=== PATIENT | male | born 1980 | race Hispanic/Latino ===

== ENCOUNTER 2018-01-17 23:13 | Emergency (ER) | payer OTHER, SELFPAY ==
[2018-01-17 23:48] LABS: #Basophils 0.1 thou/uL (0.0-0.2); #Eosinphils 0.2 thou/uL (0.0-0.7); #Lymphocytes 2.8 thou/uL (1.20-3.40); #Monocytes 0.7 thou/uL (0.11-0.59); #Neutrophils 3.9 thou/uL (1.40-6.50); %Basophils 1.3 % (0.0-1.0); %Eosinophils 2.8 % (0.0-10.0); %Lymphocytes 36.7 % (21.0-51.0); %Monocytes 8.5 % (0.0-10.0); %Neutrophils 50.7 % (42.0-75.0); Mean Corpuscular HGB CONC 35.3 g/dL (32.0-36.0); Mean Corpuscular Hemoglobin 29.7 pg (27.0-31.0); Mean Corpuscular Volume 84.3 fl (80.0-94.0); Platelet Count 225 thou/uL (130-400); RBC Distribution Width 12.4 % (11.5-14.5); White Blood Cell (WBC) Count 7.7 thou/uL (4.8-10.8)
[2018-01-17 23:53] LABS: INR-International Normal Ratio 0.9; PTT 25.4 SEC (22.9-36.1); Prothrombin Time 11.9 SEC (12.0-14.7)
[2018-01-18 00:01] LABS: ALT (SGPT) 17 U/L (8-55); AST (SGOT) 12 U/L (5-34); Albumin 3.9 g/dL (3.5-5.0); Alkaline Phosphatase 88 U/L (40-150); Anion Gap 20 mmol/L (10-20); BUN (Urea Nitrogen) 17 mg/dL (8.9-20.6); Bilirubin, Total 0.4 mg/dL (0.2-1.2); CK (CPK) 157 U/L (30-200); Calc. Creatinine Clearance 0 mL/min (70-130); Calcium 9.6 mg/dL (7.8-10.44); Carbon Dioxide 23 mmol/L (22-29); Chloride 96 mmol/L (98-107); Estimated GFR-MDRD Greater than 90; Glucose 370 mg/dL (70-105); Lipase 193 U/L (8-78); Potassium 4.1 mmol/L (3.5-5.1); Protein, Total 6.9 g/dL (6.0-8.3); Sodium 135 mmol/L (136-145)
--- NOTE | 2018-01-18 07:37 | CT ---
ABDOMEN AND PELVIC CT WITH CONTRAST: COMPARISON: 11/30/15. CLINICAL HISTORY: Abdominal pain, hematemesis, and rectal bleeding. FINDINGS: There is no acute abnormality of the solid abdominal organs. The bowel is incompletely evaluated wit hout enteric contrast. There is no free air or portal venous gas. No significant ascites. There is a small hypodensity centrally within the liver, too small to further characterize. No consolidation at the lung bases. No acute osseous abnormalities. There is vascular calcification. IMPRESSION: No definite acute abnormality. There is incomplete assessment of the bowel without enteric contrast. Correlate clinically. No obvious peritoneal inflammation is seen. POS: C
== END 2018-01-18 00:32 | disposition home or self-care (01) ==
LOC: SCSER 23:13
DX: K92.0 Hematemesis (principal); K62.5 Hemorrhage of anus and rectum; E11.9 Type 2 diabetes mellitus without complications; I10 Essential (primary) hypertension; F41.9 Anxiety disorder, unspecified; F17.210 Nicotine dependence, cigarettes, uncomplicated; Z79.84 Long term (current) use of oral hypoglycemic drugs; Z79.899 Other long term (current) drug therapy
CPT/HCPCS: 74177; 80053; 82550; 83690; 85025; 85610; 85730

== ENCOUNTER 2020-11-12 13:47 | Emergency (ER) | payer OTHER, SELFPAY ==
[2020-11-12] MEDS ORDERED: Dexamethasone 10 MG/ML VIAL ONE (14:18)
[2020-11-12 14:41] LABS: Bacteria/HPF None Seen HPF (None Seen); Bilirubin Negative (Negative); Blood, Urine 1+ (Negative); Clarity Clear (Clear); Glucose, Urine (Dipstick) Greater than 1000 mg/dL (Negative); Ketone, Urine Negative (Negative); Leukocyte 25 Leu/uL (Negative); Nitrite Negative (Negative); Protein, Urine (Dipstick) 30 mg/dL (Neg-Trace); RBC/HPF 0-3 HPF (0-3); Specific Gravity, Urine 1.021 (1.002-1.036); Squamous Epithelial 0-3 HPF (0-3); Urobilinogen Normal mg/dL (Less than 2); pH, Urine 5.5 (5.0-9.0)
== END 2020-11-12 14:59 | disposition home or self-care (01) ==
LOC: ERS 13:47
DX: M54.10 Radiculopathy, site unspecified (principal); N39.0 Urinary tract infection, site not specified; F17.210 Nicotine dependence, cigarettes, uncomplicated; I10 Essential (primary) hypertension; E11.9 Type 2 diabetes mellitus without complications; X50.1XXA Overexertion from prolonged static or awkward postures, initial encounter
CPT/HCPCS: 81003; 81015; 87077; 87086; 96372; 99283; J1100

== ENCOUNTER 2020-12-22 08:44 | Emergency (ER) | payer OTHER, SELFPAY | END 2020-12-22 10:48 | disposition home or self-care (01) | LOC: ERS 08:44 | DX: M54.5 Low back pain (principal); Z79.899 Other long term (current) drug therapy; E11.9 Type 2 diabetes mellitus without complications; F17.210 Nicotine dependence, cigarettes, uncomplicated | CPT/HCPCS: 99281 ==